=== PATIENT | female | born 1990 | race African-American/Black ===

== ENCOUNTER 2019-09-17 08:41 | Inpatient (IN) | payer OTHER ==
[~2019-09-17] VITALS: Ht 162.6 cm; Wt 48.5 kg
[2019-09-17] MEDS ORDERED: ACETAMINOPHEN 500MG TABLET PO ONE (09:00)
[2019-09-17] MEDS ORDERED: VANCOMYCIN 1 G PREMIX 200 ML IV ONE (09:00)
[2019-09-17] MEDS ORDERED: PIPERACILLIN/TAZ 3.375G PREMIX 50 ML IV ONE (09:00)
[2019-09-17] MEDS ORDERED: KETOROLAC 15MG/ML VIAL IV ONE (09:00)
[2019-09-17] MEDS ORDERED: SODIUM CHLORIDE 0.9% 1000ML BAG (SEPSIS BOLUS) IV ONE (09:00)
[2019-09-17 09:24] LABS: BASOPHILS % 0.2 % (0.0-2.0); EOSINOPHILS % 0.1 % (0.0-5.0); HEMATOCRIT. 23.7 % (36.0-48.0); HEMOGLOBIN. 7.3 g/dL (12.0-16.0); LYMPHOCYTES % 7.9 % (20.0-50.0); MEAN CORPUSCULAR HEMOGLOBIN 18.9 pg (28.0-32.0); MEAN CORPUSCULAR VOLUME 61.8 fL (81.0-99.0); MEAN PLATELET VOLUME 9.4 fl (7.4-10.4); MONOCYTES % 9.8 % (2.0-8.0); PLATELET 241 x1000/uL (130-400); RED BLOOD CELL COUNT 3.83 mill/uL (4.2-5.4); RED CELL DISTRIBUTION WIDTH 18.9 % (11.6-14.6)
[2019-09-17 09:31] LABS: CHLORIDE 104 mEq/L (98-107); INR 1.1; PROTHROMBIN TIME 11.4 sec (9.6-11.0)
[2019-09-17 09:34] LABS: CLARITY URINE TURBID (CLEAR); COLOR URINE YELLOW (YELLOW); KETONES URINE NEGATIVE (NEGATIVE); LEUKOCYTE ESTERASE URINE 3+ (NEGATIVE); NITRITE URINE POSITIVE (NEGATIVE); OCCULT BLOOD URINE 3+ (NEGATIVE); PROTEIN URINE 2+ (NEGATIVE); SPECIFIC GRAVITY URINE 1.016 (1.005-1.030); UROBILINOGEN URINE 0.2 E.U./dL (0.2-1.0)
[2019-09-17 09:46] LABS: PLATELET ESTIMATE NORMAL
[2019-09-17] MEDS ORDERED: IOHEXOL-300 100 ML BOTTLE ONE (10:50)
[2019-09-17] MEDS ORDERED: DIPHENHYDRAMINE 50MG/ML VIAL IV ONE (11:45)
[2019-09-17 12:00] VITALS: BP 96/56
[2019-09-17] MEDS ORDERED: SODIUM CHLORIDE 0.45% 1,000 ML IV SCH (12:26)
[2019-09-17] MEDS ORDERED: ONDANSETRON HCL 4MG/2ML INJ IV PRN (12:30)
[2019-09-17] MEDS ORDERED: CLONIDINE 0.1MG TABLET PO PRN (12:30)
[2019-09-17] MEDS ORDERED: LORAZEPAM 2MG/ML CPJ IV PRN (12:30)
[2019-09-17] MEDS ORDERED: DIPHENHYDRAMINE 50MG/ML VIAL IV PRN (12:30)
[2019-09-17] MEDS ORDERED: PIPERACILLIN/TAZ 3.375G PREMIX 50 ML IV SCH (12:30)
[2019-09-17] MEDS ORDERED: IPRATROPIUM/ALBUTEROL 0.5-3(2.5)MG/3ML NEB HHN PRN (12:30)
[2019-09-17] MEDS ORDERED: GUAIFENESIN 200MG/10ML SUGAR FREE UDC PO PRN (12:30)
[2019-09-17] MEDS ORDERED: HYDROCODONE/ACETAMINOPHEN 10/325MG TABLET PO PRN (12:30)
[2019-09-17] MEDS ORDERED: MAGNESIUM/ALUMINUM HYDROXIDE/SIMETHICONE 30ML UDC PO PRN (12:30)
[2019-09-17] MEDS ORDERED: NA PHOS,M-B/NA PHOS,DI-BA ENEMA 118ML PR PRN (12:30)
[2019-09-17] MEDS ORDERED: DOCUSATE SODIUM 100MG CAPSULE PO PRN (12:30)
[2019-09-17 14:00] VITALS: BP 96/56
[2019-09-17 15:00] VITALS: BP 94/39
[2019-09-17] MEDS: PIPERACILLIN/TAZOBACTAM 3.375 G in DEXT 5% WATER 100 ML IV SCH ×2 (15:44→21:28)
[2019-09-17] MEDS: ACETAMINOPHEN 325MG TABLET PO PRN (15:49)
[2019-09-17 16:00] VITALS: BP 98/52
[2019-09-17] MEDS: VANCOMYCIN 750 MG PREMIX 150 ML IV SCH (17:40)
[2019-09-17 20:32] VITALS: BP 90/37
[2019-09-17 21:05] VITALS: BP 93/44
[2019-09-17] MEDS: SODIUM CHLORIDE 0.9% 1,000 ML IV SCH (21:42)
[2019-09-17] MEDS: SODIUM CHLORIDE 0.9% INJ 3ML FLUSH IVF SCH (21:52)
[2019-09-18] VITALS (9 sets, daily range): BP systolic 92–112; BP diastolic 42–73
[2019-09-18] MEDS: VANCOMYCIN 750 MG PREMIX 150 ML IV SCH ×3 (00:46→16:44)
[2019-09-18] MEDS: ACETAMINOPHEN 325MG TABLET PO PRN ×4 (04:26→22:44)
[2019-09-18] MEDS: MORPHINE SULFATE 2 MG/ML CPJ (NOT FOR IM USE) IV PRN (04:32)
[2019-09-18] MEDS: SODIUM CHLORIDE 0.9% INJ 3ML FLUSH IVF SCH ×3 (05:29→22:56)
[2019-09-18] MEDS: PIPERACILLIN/TAZOBACTAM 3.375 G in DEXT 5% WATER 100 ML IV SCH ×3 (05:29→22:56)
[2019-09-18 06:40] LABS: CHLORIDE 109 mEq/L (98-107)
[2019-09-18 06:49] LABS: BASOPHILS % 0.3 % (0.0-2.0); EOSINOPHILS % 1.3 % (0.0-5.0); LYMPHOCYTES % 10.7 % (20.0-50.0); MEAN CORPUSCULAR HEMOGLOBIN 19.1 pg (28.0-32.0); MEAN CORPUSCULAR VOLUME 62.4 fL (81.0-99.0); MEAN PLATELET VOLUME 9.6 fl (7.4-10.4); MONOCYTES % 11.9 % (2.0-8.0); NEUTROPHILS % 75.8 % (40.0-76.0); PLATELET 211 x1000/uL (130-400); RED BLOOD CELL COUNT 3.12 mill/uL (4.2-5.4); RED CELL DISTRIBUTION WIDTH 19.4 % (11.6-14.6)
[2019-09-18 07:02] LABS: HEMATOCRIT. 19.5 % (36.0-48.0)
[2019-09-18] MEDS ORDERED: POTASSIUM CHLORIDE 20MEQ TABLET SR PO SCH (09:00)
[2019-09-18] MEDS: SODIUM CHLORIDE 0.9% 1,000 ML IV SCH (09:57)
[2019-09-19] VITALS (13 sets, daily range): BP systolic 92–122; BP diastolic 52–83
[2019-09-19] MEDS: VANCOMYCIN 750 MG PREMIX 150 ML IV SCH ×3 (00:36→16:39)
[2019-09-19] MEDS: PIPERACILLIN/TAZOBACTAM 3.375 G in DEXT 5% WATER 100 ML IV SCH ×3 (05:44→22:43)
[2019-09-19] MEDS: SODIUM CHLORIDE 0.9% INJ 3ML FLUSH IVF SCH ×3 (05:44→22:43)
[2019-09-19] MEDS: SODIUM CHLORIDE 0.9% 1,000 ML IV SCH ×3 (06:54→13:23)
[2019-09-19 08:12] LABS: BASOPHILS % 0.3 % (0.0-2.0); EOSINOPHILS % 1.1 % (0.0-5.0); HEMATOCRIT. 31.5 % (36.0-48.0); HEMOGLOBIN. 9.8 g/dL (12.0-16.0); LYMPHOCYTES % 12.7 % (20.0-50.0); MEAN CORPUSCULAR HEMOGLOBIN 21.8 pg (28.0-32.0); MEAN CORPUSCULAR VOLUME 69.6 fL (81.0-99.0); MEAN PLATELET VOLUME 9.5 fl (7.4-10.4); MONOCYTES % 13.2 % (2.0-8.0); NEUTROPHILS % 72.7 % (40.0-76.0); PLATELET 210 x1000/uL (130-400); RED BLOOD CELL COUNT 4.52 mill/uL (4.2-5.4); RED CELL DISTRIBUTION WIDTH 23.6 % (11.6-14.6)
[2019-09-19 08:17] LABS: CHLORIDE 110 mEq/L (98-107)
[2019-09-19] MEDS: MORPHINE SULFATE 2 MG/ML CPJ (NOT FOR IM USE) IV PRN (11:08)
[2019-09-19 13:36] LABS: HEMATOCRIT 30.9 % (36.0-48.0); HEMOGLOBIN 9.6 g/dL (12.0-16.0)
[2019-09-19] MEDS: ACETAMINOPHEN 325MG TABLET PO PRN (16:40)
[2019-09-20] VITALS: BP 116/57
[2019-09-20] MEDS: VANCOMYCIN 750 MG PREMIX 150 ML IV SCH ×3 (00:31→16:40)
[2019-09-20 04:00] VITALS: BP 104/65
[2019-09-20] MEDS: PIPERACILLIN/TAZOBACTAM 3.375 G in DEXT 5% WATER 100 ML IV SCH ×3 (05:50→21:00)
[2019-09-20] MEDS: SODIUM CHLORIDE 0.9% INJ 3ML FLUSH IVF SCH ×3 (05:51→21:00)
[2019-09-20 07:59] LABS: TOTAL IRON BINDING CAPACITY 344 ug/dL (250-450)
[2019-09-20 08:00] VITALS: BP 108/71
[2019-09-20] MEDS: SODIUM CHLORIDE 0.9% 1,000 ML IV SCH ×2 (08:55→22:01)
[2019-09-20 12:00] VITALS: BP 110/69
[2019-09-20 16:00] VITALS: BP 98/58
[2019-09-20 20:47] VITALS: BP 110/75
[2019-09-21] VITALS: BP 106/60
[2019-09-21] MEDS: VANCOMYCIN 750 MG PREMIX 150 ML IV SCH ×2 (02:06→09:07)
[2019-09-21 04:00] VITALS: BP 106/68
[2019-09-21] MEDS: PIPERACILLIN/TAZOBACTAM 3.375 G in DEXT 5% WATER 100 ML IV SCH (05:19)
[2019-09-21] MEDS: SODIUM CHLORIDE 0.9% INJ 3ML FLUSH IVF SCH (05:19)
[2019-09-21 08:00] VITALS: BP 92/57
[2019-09-21 12:00] VITALS: BP 101/68
[2019-09-21 12:50] VITALS: BP 101/68
== END 2019-09-21 13:30 | disposition home or self-care (01) | DRG 463 ==
LOC: ER 08:41 → 6WST 11:19 → EDBEDREQ 11:29 → EDBEDREQSVC 11:29 → ENRESERV 13:06
PROVIDERS: ADMIT Internal Medicine; ATTEND Internal Medicine
DX: N10 Acute pyelonephritis (principal); E43 Unspecified severe protein-calorie malnutrition; N17.9 Acute kidney failure, unspecified; E87.2 Acidosis; R65.10 Systemic inflammatory response syndrome (SIRS) of non-infectious origin without acute organ dysfunction; N11.1 Chronic obstructive pyelonephritis; E87.6 Hypokalemia; D50.9 Iron deficiency anemia, unspecified; Z68.1 Body mass index [BMI] 19.9 or less, adult; Z91.14 Patient's other noncompliance with medication regimen
CPT/HCPCS: 36415; 71045; 74177; 76770; 80048; 80202; 81003; 82270; 83540; 83550; 83605; 84145; 84484; 85014; 85018; 86850; 86900; 86920; 87077; 87186; 93005; 99291; J1200; J1885; J2270; J2405; J2543; J3370; J7030; J7040; J7060; P9016; Q9967